=== PATIENT | female | born 1980 | race Caucasian/White ===

== ENCOUNTER → 2017-12-23 | Outpatient (CLI) | payer OTHER | LOC: M RAD 08:38 | DX: R09.81 Nasal congestion (principal) | CPT/HCPCS: 70486 ==

== ENCOUNTER → 2018-11-18 | Outpatient (CLI) | payer OTHER ==
--- NOTE | 2018-11-18 15:32 | REP ---
Digital diagnostic bilateral mammography with CAD and focused breast sonography: History: Painless palpable lump in the left breast for the last 2 weeks. No comparison breast imaging. Findings: A skin marker is affixed to the skin at the site of the palpable lump. Routine views the left breast are augmented by magnified focal spot compression images. Routine views of the right breast were obtained. At the site of the palpable lump there is a ill-defined roughly spherical 2 cm upper outer quadrant mass in the left breast. This is confirmed on magnified focal spot compression images. No microcalcifications or definite spiculation is seen. The left breast is otherwise mammographically unremarkable. The right breast shows no suspicious finding. There are normal appearing lymph nodes visible in the right axilla and in the left axilla. No worrisome skin changes appreciated. Sonographic findings: Focused left breast sonography is carried out through the area of the palpable lump. At 2 o'clock position, there is a 1.7 x 1.7 x 2.1 cm irregular hypoechoic mass located 5.0 cm from the nipple. There are one or two blood vessels at its periphery. It is taller than wide on some views and is considered suspicious sonographically. Impression: BIRADS 5: BI-RADS/ACR category 5 mammogram. Highly Suggestive of Malignancy - appropriate action should be taken. BI-RADS category 5 highly suspicious left breast imaging. The palpable lump corresponds to a mass visible sonographically as well as mammographically. Ultrasound-guided needle biopsy is suggested. Alternatively, palpation guided needle biopsy could be performed. This mammogram was interpreted with the aid of an FDA-approved computer-aided detection system. The patient states she had a clinical breast exam in November 2018. The patient letter being requested is M4. This patient's estimated [facility] lifetime risk assessment for the breast cancer is 11.2 %. Electronically Signed by Christiano Leung MD 11/18/2018 05:21 P
== END ==
LOC: M RAD 13:31
PROVIDERS: ATTEND Family Medicine
DX: Z12.31 Encounter for screening mammogram for malignant neoplasm of breast (principal); N63.20 Unspecified lump in the left breast, unspecified quadrant

== ENCOUNTER → 2018-11-25 | Outpatient (REF) | LOC: M LAB LCGH 08:58 | DX: C50.412 Malignant neoplasm of upper-outer quadrant of left female breast (principal) ==

== ENCOUNTER → 2019-07-30 | Outpatient (CLI) | payer OTHER ==
[~2019-07-30] MED LIST: ALL10TAB29 PO; BUSP10TA PO; D 50CAP2 PO; DOCU100C16 PO; FERR325T18 PO; FISH1000 PO; GLUC1CAP28 PO; MYRB50TA PO; SERT-138 PO; SERT50TA29 PO
--- NOTE | 2019-08-01 15:00 | RADONC ---
RADIATION ONCOLOGY NEW PATIENT CONSULTATION REPORT DATE: 07/30/2019 CHART NUMBER: [id number] DIAGNOSIS: Infiltrating ductal carcinoma, left breast, status post biopsy with positive lymphadenopathy, status post neoadjuvant chemotherapy followed by bilateral mastectomy and reconstruction, referred for evaluation of adjuvant radiotherapy. The patient was noted to be ER, NC and HER2/gustavo oncogene negative. STAGE: IIIB, T2, N1, M0; ER negative, NC negative, HER2/gustavo negative, ICD-10 code C50.412. ECOG PERFORMANCE STATUS: 0 HISTORY OF PRESENT ILLNESS: This patient is a 38-year-old female who has been in fairly good health most of her life. She actually palpated a mass in her left breast at the one to two o'clock position which she felt was approximately the size of a walnut. She was seen by her local practitioner and a mammogram revealed an ill-defined 2 cm upper outer quadrant lesion involving the left breast. An abnormality was noted in the right breast as well. However, this right breast mass was later determined to be benign. The left mass was 5 cm from the nipple at the 2 o'clock position, as stated, and a biopsy was performed on November 26, 2018 which revealed an invasive ductal carcinoma, grade 3, and triple negative. She had a biopsy of the axillary node on December 24, 2018 as well as an MRI scan of the bilateral breasts. The left axillary lymph node was enlarged and measured over 2 cm and one of these lymph nodes involving the right axilla was biopsied and shown to contain metastatic disease. It was agreed to administer neoadjuvant chemotherapy to the patient and she received Adriamycin, Cytoxan given in a dose dense configuration for total of four cycles every 2 weeks and she received her first cycle of Adriamycin and Cytoxan on 12/24/2018. She received her fourth cycle of AC chemotherapy on 02/04/2019. She returned on February 18, 2019 to initiate week one of Taxol chemotherapy and she completed 12 weekly cycles. She therefore went to [place] for a bilateral mastectomy with a planned TRAM flap reconstruction. The final pathology revealed almost complete resolution of her tumor with 3 lymph nodes retrieved following her bilateral mastectomies which were negative for disease. She did develop a skin reaction which cleared with clindamycin and MetroGel. She comes today to talk about postoperative radiotherapy to the chest wall and peripheral lymphatics which she would like to have done in this institution as it is much closer to her home. PAST MEDICAL HEALTH: She has been in fairly good health most of her adult life with no major medical problems. PAST SURGICAL HEALTH: Breast biopsy (see HPI); wisdom teeth extraction; ganglion cyst excision; sections; bladder suspension; bilateral mastectomies with reconstruction following her neoadjuvant chemotherapy. FAMILY HISTORY OF CANCER: Her mother had apparently a history of cancers including possible breast cancer and her paternal grandmother had lung cancer. Other family members have had cancers, but no strong history in her remote family of breast cancer. SOCIAL HISTORY: She is and has three sons one is 16 and she also has to identical twins who are 6. Her mother at the age of 56 from suicide and she may have had a history of pancreatic cancer. GYNECOLOGIC HISTORY: She had a paternal grandmother who had a gynecologic malignancy. SOCIAL HISTORY: She quit smoking approximately 8 years ago and her smoking included cigarettes with a 14 pack-year history of smoking. ALCOHOL HISTORY: She drank alcohol in the past but does not presently consume alcoholic beverages and has never used recreational drugs. ALLERGIES: 1. PERCOCET. CURRENT MEDICATIONS: - BuSpar 10 mg 1 tablet per day - Colace 51 mg per day - ferrous sulfate 325/65 mg of iron - glucosamine chondroitin 500/40 mg capsules - Myrbetriq 50 mg daily - omega 3 fatty acids - sertraline 100 mg and 50 mg per day - vitamin C (500 mg) - vitamin D 1000 international units per day LABORATORY DATA AND/OR X-RAYS: Mammography on 11/18/2018 revealing a tumor at the 2 o'clock position measuring 2 cm and 5 cm from the left nipple. An MRI scan obtained on 12/2018 confirmed her mammographic findings with noted multiple axillary lymph nodes with the largest measuring approximately 2.8 cm. An ultrasound on 12/30/2018 showed a small lesion 1.1 x 0.5 x 0.6 lesion which eventually turned out to be benign. The ultrasound also revealed the previously noted irregular mass at the one to two o'clock position previously described. The patient underwent an MRI scan of the bilateral breasts on 05/12/2019 revealing architectural distortion from previous biopsies but significant improvement in the axilla. Pathology report confirmed the presence of an infiltrating ductal carcinoma involving the left axilla and confirmed metastasis involving the left axillary lymph node. The specimen also revealed fibrocystic changes and the biopsy of the actual tumor at the 2 o'clock position was felt to most likely represent a primary breast cancer. REVIEW OF SYSTEMS: NECK: Denies masses, muscle weakness, neck pain, decreased range of motion and swelling. INTEGUMENTARY: Denies alopecia, bruising, dry skin, facial burning, nail changes, photosensitivity, pruritus, rash or urticaria. BREASTS: The patient is status post bilateral mastectomy at the current time and denies any pain in the chest wall. Her incisions are healing nicely and her actual date of surgery (bilateral mastectomy and bilateral reconstruction was actually performed on June 16). RESPIRATORY: Denies coughing, dyspnea, hemoptysis, hiccups, pleuritic chest pain or wheezing. PSYCHIATRIC: Denies delusions, hallucinations, mood changes, depression, euphoria or mood swings. NEUROLOGIC: Denies disorientation, dizziness, problems with gait, headache, insomnia, memory loss, neuropathy, motor issues, paralysis, seizure disorder, sensory problems or stroke. INTEGUMENTARY: The patient denies alopecia but did experience alopecia with her chemotherapy. The hair is growing back nicely at the current time. She denies blisters, bruising or dry skin. She does have some facial blemishes and interruptions secondary to her Taxol chemotherapy. NAILS: Denies significant nail changes, photosensitivity, pruritus, rashes or urticaria. HEMATOLOGIC/LYMPHATIC: Denies easy bruising or lymphadenopathy. GENITOURINARY: Denies dysuria, frequency, genital masses, hematuria, incontinence, nocturia, renal stone disease, sexual dysfunction, urgency, urine color changes, vaginal discharge or vaginal spotting. GASTROINTESTINAL: Denies changes in bowel habits, constipation, diarrhea, heartburn, dyspepsia, hematemesis, hematochezia, hemorrhoids, melena, GI bleeding, nausea, pain, cramping early satiety or vomiting. ENDOCRINE: Denies diabetes, hot flashes, menstrual irregularities or thyroid disease. CONSTITUTIONAL: Denies changes in appetite, fatigue, fever, lethargy, malaise, night sweats, rigors, chills or weight change. CARDIOVASCULAR: Denies arrhythmias, chest pain, dyspnea, edema, orthopnea, palpitations. VITALS: Height 62 inches, weight 184.2 pounds, temperature 97.6, pulse 68, respirations 16, blood pressure systolic 126, diastolic 80, O2 saturation 98% on room air. HEENT: The patient has regrowth of much of her hair. EOMs intact. PERRLA. Fundi benign. LYMPHATICS: No palpable peripheral lymphadenopathy is appreciated in the cervical, supraclavicular, axillary or inguinal lymph node chains. LUNGS: Are clear to auscultation and percussion. BREASTS: The patient has had a bilateral TRAM flap surgical reconstruction after her bilateral mastectomy. The incisions are healing nicely. On the right side, however there are some areas of granulation tissue in the horizontal incisions. For the most part the left side has largely healed. The patient tells me that her incisions bilaterally are healing well. HEART: Regular without murmurs. ABDOMEN: Without evidence of hepatomegaly, masses, deep abdominal tenderness. EXTREMITIES: Without cyanosis, clubbing or edema. NEUROLOGIC EXAMINATION: Physiologic. 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 A/L/K P. [id number] DUP IMPRESSION: Poorly differentiated infiltrating ductal carcinoma involving the left breast status post biopsy, neoadjuvant chemotherapy followed by reconstructive surgery after bilateral mastectomies. The patient pathologically was shown to have an excellent response to the neoadjuvant chemotherapy and her original tumor was ER negative, NC negative and HER2/gustavo negative. She received neoadjuvant chemotherapy in the form of dose dense Adriamycin, Cytoxan chemotherapy followed by 12 weekly cycles of Taxol. She is now status post completion of her reconstructive surgery and is ready to consider postoperative adjuvant radiotherapy. We will set the patient up for appropriate simulation and plan her postoperative treatments to the chest wall and peripheral lymphatics. Prior to treatment delivery localization will be accomplished upon our CT simulator and treatment portals will be defined by the use of multileaf collimators. The indications, alternatives as well as potential side effects including skin erythema, desquamation, potential for radiation pneumonitis, potential in delayed wound healing, potential for increased propensity for rib fractures, as well as general fatigue, have been explained to the patient in detail. She understands and is willing to proceed as outlined. Thank you for referring this very uyen lady to us and allowing us the opportunity of participation in her overall management. cc: MD Chitra Shah MD
== END ==
LOC: M ONCR 12:55
PROVIDERS: ATTEND Radiology Radiation Oncology
DX: C50.912 Malignant neoplasm of unspecified site of left female breast (principal); Z90.13 Acquired absence of bilateral breasts and nipples; Z87.891 Personal history of nicotine dependence

== ENCOUNTER → 2019-09-04 | Outpatient (RCR) | payer OTHER ==
[2019-08-11 12:15] LABS: BASO # 0.1 10^3/uL (0.0-0.2); BASO % 0.6 % (0.0-1.0); EOS % 0.4 % (0.0-3.0); HEMATOCRIT 40.1 % (36.0-47.0); HEMOGLOBIN 12.5 g/dl (12.0-15.5); LYMPH # 1.5 10^3/uL (1.5-5.0); LYMPH % 14.2 % (24.0-44.0); MEAN CORPUSCULAR HGB CONC 31.2 g/dl (32.0-36.5); MEAN CORPUSCULAR VOLUME 89.9 fl (80.0-96.0); MONO # 0.6 10^3/uL (0.0-0.8); MONO % 6.2 % (0.0-5.0); NEUTROPHILS # 8.1 10^3/uL (1.5-8.5); NEUTROPHILS % 78.1 % (36.0-66.0); PLATELET COUNT, AUTOMATED 365 10^3/uL (150-450); RED BLOOD COUNT 4.46 10^6/uL (4.00-5.40); WHITE BLOOD COUNT 10.4 10^3/uL (4.0-10.0)
--- NOTE | 2019-08-12 08:04 | RADONC ---
RADIATION ONCOLOGY SIMULATION NOTE DATE: 09/11/2019 CHART #: [id number] Ms. Freitas was taken to the CT scan for CT simulation of her left breast and lymph node drainage field sites. CT simulation was accomplished without difficulty or discomfort. Radiation treatment planning is underway and radiation treatments will begin subsequently. An immobilization device was created and will be used throughout the course of treatment. It was created without difficulty or discomfort. I was physically present throughout the course of CT simulation.
--- NOTE | 2019-08-24 11:57 | RADONC ---
RADIATION ONCOLOGY PROGRESS NOTE DATE OF SERVICE: 08/24/2019 CHART NUMBER: [id number]. PROGRESS NOTE: Ms. Freitas is presently at a dose of 720 cGy to her left breast and is tolerating treatments quite well at this point with no complaints related to her radiation therapy. She has got no breast or bone pain. REVIEW OF SYSTEMS: The patient's review of systems is noncontributory. She denies nausea, vomiting, fevers, chills, night sweats, diplopia, headaches, anxiety or depression, anorexia, weight loss, visual disturbances, chest pain, urinary or bowel difficulties, bone pain, or neurological problems. PHYSICAL EXAMINATION: The patient's skin is in good condition with no evidence of radiation change present. Her mastectomy scar is still unchanged. The remainder of her physical exam remains unchanged, as well. ASSESSMENT: Ms. Freitas is tolerating treatments quite well, and radiation will continue as scheduled.
--- NOTE | 2019-09-01 16:11 | RADONC ---
RADIATION ONCOLOGY PROGRESS NOTE DATE: 08/31/2019 CHART NUMBER: [id number] PROGRESS NOTE: Ms. Freitas is presently at a dose of 1620 cGy to her left breast and is tolerating treatments quite well at this point with no complaints related to her radiation therapy. She is having no breast or bone pain. REVIEW OF SYSTEMS: The patient's review of systems is noncontributory. Denies nausea, vomiting, fevers, chills, night sweats, diplopia, headaches, anxiety or depression, anorexia, weight loss, visual disturbances, chest pain, urinary or bowel difficulties, bone pain, or neurological problems. PHYSICAL EXAMINATION: The patient's skin is in good condition with no evidence of moist or dry desquamation. The remainder of her physical exam remains unchanged. Ms. Freitas is tolerating treatments quite well and radiation will continue as scheduled.
== END ==
LOC: M ONCR 08-11 10:59
PROVIDERS: ATTEND Radiology Radiation Oncology
DX: C50.412 Malignant neoplasm of upper-outer quadrant of left female breast (principal)

== ENCOUNTER 2019-09-28 11:08 | Outpatient (RCR) | payer OTHER ==
--- NOTE | 2019-09-07 13:55 | RADONC ---
RADIATION ONCOLOGY PROGRESS NOTE: DATE: 09/07/2019 CHART NUMBER: [id number] Ms. Freitas is presently at a dose of 2520 cGy to her left breast and is tolerating treatments quite well at this point with no complaints related to her radiation therapy. She is having no breast or bone pain. REVIEW OF SYSTEMS: The patient's review of systems is noncontributory. She denies nausea, vomiting, fevers, chills, night sweats, diplopia, headaches, anxiety or depression, anorexia, weight loss, visual disturbances, chest pain, urinary or bowel difficulties, bone pain, or neurological problems. PHYSICAL EXAMINATION: The patient's skin is in good condition with no evidence of moist or dry desquamation. The remainder of her physical exam remains unchanged. Ms. Freitas is tolerating treatments quite well and radiation will continue as scheduled.
--- NOTE | 2019-09-14 12:38 | RADONC ---
RADIATION ONCOLOGY DATE OF SERVICE: 09/14/2019 Ms. Freitas has diagnosis of triple negative left breast CA. She is status post mastectomy, mammoplasty and currently on radiation therapy. So far, she has received a dose of 3420 cGy. She is tolerating treatment fairly well without unusual side effect. REVIEW OF SYSTEMS: She complains of occasional discomfort in the left breast surgical site. She denies nausea, vomiting, chills, headache, anorexia, but she feels fatigued. PHYSICAL EXAMINATION: Shows post mammoplasty on both breasts. There is a healing scar in both inframammary areas. There are no skin changes noted in the left breast. Ms. Freitas is tolerating treatment fairly well and the radiation therapy will continue as planned. MTDD
--- NOTE | 2019-09-22 10:27 | RADONC ---
DATE OF SERVICE: 09/21/2019 Ms. Freitas carries a diagnosis of triple negative left breast cancer. She is status post mastectomy, mammoplasty, and currently on radiation therapy. So far she has received dose of 4140 cGy in 180 cGy daily fractions. She is tolerating treatments fairly well without new side effect. REVIEW OF SYSTEMS: She still complains of occasional discomfort in the left breast surgical site. She denies nausea, vomiting, chills, headache, anorexia, but she feels a little fatigue PHYSICAL EXAMINATION: She is well developed, nourished, and no in any distress. Shows post mammoplasties in both breasts. There are healing scars in both inframammary areas. The right side is healed nicely. The left breast shows a moderate area of eczema most significantly in the left axilla and inframammary area, some itching and soreness which I recommend application of hydrocortisone cream. PHYSICAL EXAMINATION: Her blood pressure is 117/76, pulse 68, respirations 14, temperature 97.8, 98% oxygen saturation, she weighs 187.6 pounds. there is mild erythema noted left breast mostly inframammary area and left axilla ASSESSMENT AND RECOMMENDATION: Ms. Freitas is tolerating treatment fairly well. The radiation therapy will continue as planned. [facility]
--- NOTE | 2019-09-29 10:53 | RADONC ---
RADIATION ONCOLOGY TREATMENT SUMMARY DATE: 09/28/2019 CHART NUMBER: [id number] DIAGNOSIS: Left breast cancer. STAGE: IIIB, T2, N1, M0, ER negative, MI negative, HER2/gustavo negative. ECOG PERFORMANCE STATUS: 0 TREATMENT SUMMARY: The patient is a very pleasant, 38-year-old white female with the diagnosis of a stage IIIB, T2N1M0 infiltrating ductal carcinoma of the left breast who presented to us status post mastectomy for consideration of postoperative radiation therapy in an attempt to increase the likelihood of achieving local control. We treated the patient to her left chest wall for a total dose of 5040 cGy delivered in 28 fractions of 180 cGy each over 40 elapsed days from 08/19/2021 through 09/28/2019. The patient's left chest wall was treated on the linear accelerator utilizing a combination of 10X and 6X photons. Ms. Freitas tolerated her treatments quite well and is scheduled to see me again in 1 month for further followup. She will also continue to be followed by her other physicians as well. cc: MD Chitra Shah MD
== END 2019-10-03 ==
LOC: M ONCR 11:08
PROVIDERS: ATTEND Radiology Radiation Oncology
DX: C50.412 Malignant neoplasm of upper-outer quadrant of left female breast (principal)

== ENCOUNTER → 2020-01-28 | Outpatient (CLI) | payer OTHER ==
--- NOTE | 2020-01-29 17:19 | REP ---
ULTRASOUND RIGHT CHEST WALL: Real-time sonographic evaluation of right chest wall performed. Patient has had prior bilateral mastectomy with FUNMILAYO flap reconstruction, June 2019. Reportedly, there is a palpable lump in the region of the reconstructed right breast at 12-o'clock location. At that location, there is a lobulated band of hypoechoic tissue, extending from about 11-o'clock position to about 2-o'clock position of the reconstructed right breast. It extends for a length of approximately 3 cm. Maximum diameter is approximately 1.4 cm. Finding is nonspecific, but probably is related to the tissue utilized to reconstruct the right breast. At the 2-o'clock position, there is a 5 mm cyst. There is no fluid collection. There are no other significant findings. Clinical correlation and followup recommended. Electronically Signed by Iban Cuevas MD 02/08/2020 11:24 A
== END ==
LOC: M RAD 15:18
PROVIDERS: ATTEND Nurse Practitioner Adult Health
DX: N63.10 Unspecified lump in the right breast, unspecified quadrant (principal); C50.919 Malignant neoplasm of unspecified site of unspecified female breast; Z90.13 Acquired absence of bilateral breasts and nipples

== ENCOUNTER 2020-05-03 10:42 | Day surgery (SDC) | payer OTHER ==
[~2020-05-03] VITALS: Ht 157.5 cm; Wt 81.6 kg
[~2020-05-03 10:42] MED LIST changes: +ACETAMINOPHEN 650 MG SUPP PR ONE; -ALL10TAB29 PO; +CETI-24 PO; -GLUC1CAP28 PO; +GLUC500C55 PO; +LIDOCAINE 1% MDV 20ML VIAL SQ PRN; +LR 1,000 ML IV ONE
[2020-05-03 11:35] LABS: HEMATOCRIT 30.9 % (36.0-47.0); HEMOGLOBIN 10.2 g/dl (12.0-15.5); MEAN CORPUSCULAR HEMOGLOBIN 29.8 pg (27.0-33.0); MEAN CORPUSCULAR VOLUME 90.4 fl (80.0-96.0); PLATELET COUNT, AUTOMATED 394 10^3/uL (150-450); RED BLOOD COUNT 3.42 10^6/uL (4.00-5.40); WHITE BLOOD COUNT 5.5 10^3/uL (4.0-10.0)
[2020-05-03 12:05] LABS: BLOOD UREA NITROGEN 11 MG/DL (7-18); CALCIUM LEVEL 9.1 MG/DL (8.5-10.1); CARBON DIOXIDE LEVEL 27 MEQ/L (21-32); CHLORIDE LEVEL 106 MEQ/L (98-107); GLOMERULAR FILTRATION RATE > 60.0 (>58); GLUCOSE, FASTING 99 MG/DL (70-100); POTASSIUM SERUM 4.2 MEQ/L (3.5-5.1); SODIUM LEVEL 138 MEQ/L (136-145)
[2020-05-03] MEDS ORDERED: MIDAZOLAM INJ 2MG/2ML VIAL (J2250 PER 1MG) As Ordered ONE (12:10)
[2020-05-03] MEDS ORDERED: fentaNYL 100 MCG/2 ML INJECTION (J3010) As Ordered ONE (12:10)
[2020-05-03] MEDS ORDERED: LIDOCAINE 2% 100MG/5ML SDV (FOR ANES.) As Ordered ONE (12:10)
[2020-05-03] MEDS ORDERED: propofoL 200 MG/20 ML VIAL As Ordered ONE (12:10)
[2020-05-03] MEDS ORDERED: dexameTHASONE 4 MG/ML 1ML VIAL (J1100 PER 1MG) As Ordered ONE (12:11)
[2020-05-03] MEDS ORDERED: ONDANSETRON 4MG/2ML VIAL As Ordered ONE (12:11)
[2020-05-03] MEDS ORDERED: ACETAMINOPHEN 650 MG SUPP As Ordered ONE (13:35)
[2020-05-03] MEDS ORDERED: GLYCOPYRROLATE INJ 0.2 MG/ML 2 ML VIAL As Ordered ONE (14:03)
[2020-05-03] MEDS ORDERED: METOCLOPRAMIDE INJ 10MG/2ML VIAL (J2765 PER 1) As Ordered ONE (14:03)
[2020-05-03] MEDS ORDERED: HYDROMORPHONE HCL 0.5 MG/ 0.5 ML SYRINGE (J1170 PER 1) IV PRN (14:45)
[2020-05-03] MEDS ORDERED: ONDANSETRON 4MG/2ML VIAL IV PRN (14:45)
[2020-05-03] MEDS ORDERED: fentaNYL 100 MCG/2 ML INJECTION (J3010) IV PRN (14:45)
[2020-05-03] MEDS ORDERED: KETOROLAC 30 MG/ML 1ML VIAL IV PRN (14:45)
[2020-05-03] MEDS ORDERED: LR 1,000 ML IV SCH (14:45)
[2020-05-03 15:29] VITALS: BP 121/62
== END 2020-05-03 17:15 | disposition home or self-care (01) ==
LOC: M SDC 10:42
PROVIDERS: ATTEND Obstetrics & Gynecology
DX: N93.9 Abnormal uterine and vaginal bleeding, unspecified (principal); Z12.4 Encounter for screening for malignant neoplasm of cervix; N71.1 Chronic inflammatory disease of uterus; D64.9 Anemia, unspecified; F41.9 Anxiety disorder, unspecified; F32.9 Major depressive disorder, single episode, unspecified; Z85.3 Personal history of malignant neoplasm of breast; Z88.5 Allergy status to narcotic agent; Z88.8 Allergy status to other drugs, medicaments and biological substances; Z92.21 Personal history of antineoplastic chemotherapy; Z92.3 Personal history of irradiation; Z79.899 Other long term (current) drug therapy; Z87.891 Personal history of nicotine dependence
CPT/HCPCS: 36415; 57410; 58558; 80048; 84702; 85027; 87624; 88305; G0123; J1100; J2250; J2405; J2765; J3010

== ENCOUNTER → 2020-05-04 | Outpatient (RCR) | payer OTHER ==
[~2020-05-04] MED LIST changes: -ACETAMINOPHEN 650 MG SUPP PR ONE; -LIDOCAINE 1% MDV 20ML VIAL SQ PRN; -LR 1,000 ML IV ONE
== END | disposition home or self-care (01) ==
LOC: M PT 04-27 08:05
PROVIDERS: ATTEND Surgery Surgical Oncology
DX: C50.412 Malignant neoplasm of upper-outer quadrant of left female breast (principal)

== ENCOUNTER 2020-05-11 11:47 | Outpatient (RCR) | payer OTHER | END 2020-06-04 | LOC: M PT 11:47 | DX: I89.0 Lymphedema, not elsewhere classified (principal); I74.4 Embolism and thrombosis of arteries of extremities, unspecified; C50.412 Malignant neoplasm of upper-outer quadrant of left female breast; Z87.891 Personal history of nicotine dependence ==

== ENCOUNTER 2020-07-26 08:46 | Day surgery (SDC) | payer OTHER ==
[~2020-07-26] VITALS: Ht 157.5 cm; Wt 84.4 kg
[~2020-07-26 08:46] MED LIST changes: +ACETAMINOPHEN 650 MG SUPP PR ONE; +LIDOCAINE 2% 100MG/5ML SDV (FOR ANES.) As Ordered ONE; +LR 1,000 ML IV ONE; +MIDAZOLAM INJ 2MG/2ML VIAL (J2250 PER 1MG) As Ordered ONE; +NS 1,000 ML IV ONE; +ONDANSETRON 4MG/2ML VIAL As Ordered ONE; +dexameTHASONE 4 MG/ML 1ML VIAL (J1100 PER 1MG) As Ordered ONE; +fentaNYL 100 MCG/2 ML INJECTION (J3010) As Ordered ONE; +propofoL 200 MG/20 ML VIAL As Ordered ONE
[2020-07-26 09:21] LABS: HEMATOCRIT 32.9 % (36.0-47.0); MEAN CORPUSCULAR HEMOGLOBIN 29.6 pg (27.0-33.0); MEAN CORPUSCULAR HGB CONC 33.4 g/dl (32.0-36.5); MEAN CORPUSCULAR VOLUME 88.7 fl (80.0-96.0); PLATELET COUNT, AUTOMATED 310 10^3/uL (150-450); RED BLOOD COUNT 3.71 10^6/uL (4.00-5.40); WHITE BLOOD COUNT 6.2 10^3/uL (4.0-10.0)
[2020-07-26 09:51] LABS: BLOOD UREA NITROGEN 16 MG/DL (7-18); CALCIUM LEVEL 8.5 MG/DL (8.5-10.1); CARBON DIOXIDE LEVEL 25 MEQ/L (21-32); CHLORIDE LEVEL 108 MEQ/L (98-107); CREATININE FOR GFR 0.69 MG/DL (0.55-1.30); GLOMERULAR FILTRATION RATE > 60.0 (>58); GLUCOSE, FASTING 95 MG/DL (70-100); HCG, SERUM QUANTITATIVE < 1.0 MIU/ML; SODIUM LEVEL 139 MEQ/L (136-145)
[2020-07-26] MEDS ORDERED: ACETAMINOPHEN 650 MG SUPP As Ordered ONE (10:12)
[2020-07-26] MEDS ORDERED: SCOPOLAMINE 1MG TRANSDERMAL PATCH As Ordered ONE (10:13)
[2020-07-26] MEDS ORDERED: SCOPOLAMINE 1MG TRANSDERMAL PATCH TOP ONE (10:45)
[2020-07-26] MEDS ORDERED: KETOROLAC 60MG 2ML VIAL As Ordered ONE (11:11)
[2020-07-26] MEDS ORDERED: METOCLOPRAMIDE INJ 10MG/2ML VIAL (J2765 PER 1) As Ordered ONE (11:15)
[2020-07-26] MEDS ORDERED: NORCO, ANEXSIA 5/325MG TABLET (HYDROcodone/ACETAMINOPHEN) PO PRN (12:00)
[2020-07-26] MEDS ORDERED: ONDANSETRON 4MG/2ML VIAL IV PRN (12:00)
[2020-07-26] MEDS ORDERED: fentaNYL 100 MCG/2 ML INJECTION (J3010) IV PRN (12:00)
[2020-07-26] MEDS ORDERED: LR 1,000 ML IV SCH (12:00)
[2020-07-26] MEDS ORDERED: IBUPROFEN 600MG TAB PO SCH (13:00)
[2020-07-26 13:05] VITALS: BP 121/66
--- NOTE | 2020-07-27 11:59 | RO ---
OPERATIVE NOTE DATE OF OPERATION: 07/26/2020 OPERATION PROPOSED: Pap smear, hysteroscopy, dilation and curettage (D&C), endometrial NovaSure ablation. OPERATION PERFORMED: Hysteroscopy, dilation and curettage (D&C), Pap smear, and NovaSure ablation. ANESTHESIA: General. ESTIMATED BLOOD LOSS: Less than 20 mL. SURGEON: Tye Fernando MD. ASSISTANTS: Evelin Landry MD and instrumentation tech. Dr. Ladnry was needed for extraction, retraction, and visualization. Otherwise, the procedure could not be completed. The patient was COVID negative. No antibiotics required. DESCRIPTION OF PROCEDURE: After adequate time-out, prepped and draped in the lithotomy position, the bladder was drained for 350 mL of clear urine. Large Oscar speculum was placed in the vagina with lateral wall retractors on either side. The cervix was demonstrated high anteriorly. A Pap smear was performed because previous Pap smears were insufficient cells, and it was sent off to pathology under separate cover. Re-prepping and draping and another time-out, a single-tooth tenaculum on the anterior lip of the cervix, the uterus was sounded up to 9 cm and dilated to a Lehman 15. Endometrial curettings were performed. There appeared to be a polypoid lesion noted in the curettings. These were sent off to pathology under separate cover. The patient's last period was 06/30/2020. Then, the endometrial NovaSure ablation equipment was placed in the uterine cavity. A cavity length of 6.5, a cavity width of 4.4, the machine was enabled. We used 143 watt power. The ablation took one minute and 43 seconds. The machine was removed. Then, the patient was hysteroscoped with a 0-degree scope using 150 mL and 150 mL out. Reviewing the anatomy of the uterus, there appeared to be a good burn anterior, posterior, and lateral pineda. Both os appeared to be within normal limits. There was a moderate amount of debris, clots, and burned tissue that was evacuated with the hysteroscope. The hysteroscope was removed. The tenaculum was removed. The uterus was replaced in anatomical position, and the patient was sent to recovery in good condition.
== END 2020-07-26 13:10 | disposition home or self-care (01) ==
LOC: M SDC 08:46
PROVIDERS: ATTEND Obstetrics & Gynecology
DX: N93.9 Abnormal uterine and vaginal bleeding, unspecified (principal); Z12.4 Encounter for screening for malignant neoplasm of cervix; C50.919 Malignant neoplasm of unspecified site of unspecified female breast; D64.9 Anemia, unspecified; F32.9 Major depressive disorder, single episode, unspecified; F41.9 Anxiety disorder, unspecified; Z87.891 Personal history of nicotine dependence; Z88.5 Allergy status to narcotic agent; Z88.6 Allergy status to analgesic agent; Z90.13 Acquired absence of bilateral breasts and nipples; Z92.21 Personal history of antineoplastic chemotherapy; Z92.3 Personal history of irradiation; Z98.51 Tubal ligation status
CPT/HCPCS: 36415; 58563; 80048; 84702; 85027; 88305; G0123; J1100; J1885; J2250; J2405; J2765; J3010

== ENCOUNTER → 2024-11-25 | Outpatient (CLI) | payer OTHER ==
[~2024-11-25] MED LIST changes: -ACETAMINOPHEN 650 MG SUPP PR ONE; +FERR325T19 PO; -GLUC500C55 PO; +GLUC500C65 PO; +KP F1200 PO; -LIDOCAINE 2% 100MG/5ML SDV (FOR ANES.) As Ordered ONE; -LR 1,000 ML IV ONE; +MAGN250T7 PO; -MIDAZOLAM INJ 2MG/2ML VIAL (J2250 PER 1MG) As Ordered ONE; -NS 1,000 ML IV ONE; -ONDANSETRON 4MG/2ML VIAL As Ordered ONE; +POTA99TA14 PO; +PREG25CA3 PO; +VITA100093 PO; +ZOLO100T PO; -dexameTHASONE 4 MG/ML 1ML VIAL (J1100 PER 1MG) As Ordered ONE; -fentaNYL 100 MCG/2 ML INJECTION (J3010) As Ordered ONE; -propofoL 200 MG/20 ML VIAL As Ordered ONE
== END ==
LOC: M WHC 13:06
PROVIDERS: ATTEND Student in an Organized Health Care Education/Training Program
DX: N63.23 Unspecified lump in the left breast, lower outer quadrant (principal); Z85.3 Personal history of malignant neoplasm of breast; Z17.1 Estrogen receptor negative status [ER-]; Z90.13 Acquired absence of bilateral breasts and nipples

== ENCOUNTER → 2025-02-11 | Outpatient (CLI) | payer OTHER ==
[~2025-02-11] MED LIST changes: +PROHANCE 279.3MG/ML 15ML VIAL ONE; +PROHANCE 279.3MG/ML 5ML VIAL ONE
== END ==
LOC: M PLAIMG 12:43
PROVIDERS: ATTEND Student in an Organized Health Care Education/Training Program
DX: C50.912 Malignant neoplasm of unspecified site of left female breast (principal); Z17.1 Estrogen receptor negative status [ER-]; N64.59 Other signs and symptoms in breast
CPT/HCPCS: A9576; C8908

== ENCOUNTER → 2025-03-24 | Outpatient (REF) | payer OTHER ==
[~2025-03-24] MED LIST changes: -PROHANCE 279.3MG/ML 15ML VIAL ONE; -PROHANCE 279.3MG/ML 5ML VIAL ONE
== END ==
LOC: M LAB REF 17:41
PROVIDERS: ATTEND Surgery
DX: Z85.3 Personal history of malignant neoplasm of breast (principal); N63.23 Unspecified lump in the left breast, lower outer quadrant